=== PATIENT | female | born 1935 | race African-American/Black ===

== ENCOUNTER 2022-03-10 12:28 | Emergency (ER) | payer OTHER, MEDICAID ==
[~2022-03-10] VITALS: Ht 160 cm; Wt 73.5 kg
[~2022-03-10 12:28] MED LIST: DOCU-299 PO; METPCK PO; OMEP-278 PO; ROBDM PO
--- NOTE | 2022-03-10 12:28 | NUR ---
CARLOS ALS TO ER BED 10
[2022-03-10 12:40] VITALS: BP 109/58
[2022-03-10] MEDS ORDERED: NACL 0.9% 1,000 ML IV ONE (12:40)
--- NOTE | 2022-03-10 12:43 | NUR ---
Assumed care of pt from JOHN Deras.
--- NOTE | 2022-03-10 12:45 | NUR ---
PATIENT TAKEN TO CT VIA GURNEY, PATIENT ON PORTABLE DEMOLITION WORKER, PRIMARY RN ACCOMPANIED GYMNASTIC COACH.
--- NOTE | 2022-03-10 13:40 | NUR ---
Urine collected and walked to lab
[2022-03-10 14:14] LABS: APPEARANCE,URINE CLEAR (CLEAR); BILIRUBIN,URINE NEGATIVE (NEGATIVE); BLOOD, URINE 1+ (NEGATIVE); COLOR,URINE YELLOW (YELLOW); LEUKOCYTE ESTERASE ,URINE NEGATIVE (NEGATIVE); NITRITE, URINE NEGATIVE (NEGATIVE); UGLUCOSE 2+ (NEGATIVE)
[2022-03-10 14:35] LABS: ALBUMIN 2.7 g/dL (3.4-5.0); ANION GAP 14.2 (8-16); ASPARTATE AMINOTRANSFERASE 17 U/L (15-37); CARBON DIOXIDE 23.7 mmol/L (21-32); CHLORIDE 101 mmol/L (98-107); CREATININE 1.1 mg/dL (0.6-1.3); GLUCOSE 315 mg/dL (74-106); POTASSIUM 3.9 mmol/L (3.5-5.1); SODIUM SERUM 135 mmol/L (136-145); TOTAL BILIRUBIN 0.4 mg/dL (0.0-1.0); UREA NITROGEN, BLOOD 12 mg/dL (7-18)
[2022-03-10 14:54] LABS: OTHER CASTS, URINE None Seen /LPF (None Seen); WBC,URINE 0-5 /HPF (0-5)
--- NOTE | 2022-03-10 15:10 | NUR ---
Pt AOX4, bhupinder to make needs known. VSS. Pt family called for an update, ok with pt to give her children an update. All safety measures in place.
[2022-03-10 15:49] LABS: BASOPHILS % (AUTO) 0.6 % (0.0-2.0); EOSINOPHILS % (AUTO) 0.8 % (0.0-4.0); HEMOGLOBIN 11.7 g/dL (12.0-16.0); LYMPHOCYTES # (AUTO) 1.5 K/uL (2.5-16.5); LYMPHOCYTES % (AUTO) 38.4 % (20.5-51.1); MEAN CORPUSCULAR HEMOGLOBIN 32 pg (27-31); MEAN CORPUSCULAR HGB CONC 33 g/dL (33-37); MEAN CORPUSCULAR VOLUME 98.6 fL (80-94); MONOCYTES # (AUTO) 0.4 K/uL (0.8-1.0); MONOCYTES % (AUTO) 9.6 % (1.7-9.3); NEUTROPHILS # (AUTO) 1.9 K/uL (1.8-7.7); NEUTROPHILS % (AUTO) 50.6 % (42.2-75.2); PLATELET COUNT (AUTO) 129 K/uL (140-450); RED BLOOD CELL COUNT(AUTO) 3.65 MIL/uL (4.20-5.40); RED CELL DISTRIBUTION WIDTH 13.5 % (11.6-13.7); WHITE BLOOD COUNT (AUTO) 3.8 K/uL (4.8-10.8)
--- NOTE | 2022-03-10 17:24 | NUR ---
Patient appears to be resting comfortably in bed. Vital Signs within normal limits. Respirations even and unlabored.
--- NOTE | 2022-03-10 18:18 | NUR ---
Pt family contacted and they will be picking pt up in 5 minutes from our lobby.
[2022-03-10 18:40] VITALS: BP 121/70
--- NOTE | 2022-03-10 18:40 | NUR ---
Patient discharged with v/s stable. Written and verbal after care instructions given and explained with teachback. Patient alert, oriented and verbalized understanding of instructions. Ambulatory with steady gait. All questions addressed prior to discharge. ID band removed. Patient advised to follow up with PMD. Rx instructions given and explained. Patient educated on indication of medication including possible reaction and side effects. Opportunity to ask questions provided and answered.
--- NOTE | 2022-03-10 18:40 | NUR ---
Pt assisted to family vehicle with steady gait.
== END 2022-03-10 18:40 | disposition home or self-care (01) ==
LOC: MED 12:28
DX: R53.1 Weakness (principal); I95.9 Hypotension, unspecified; E86.0 Dehydration; E11.9 Type 2 diabetes mellitus without complications; Z79.84 Long term (current) use of oral hypoglycemic drugs; Z79.899 Other long term (current) drug therapy
CPT/HCPCS: 36415; 70450; 70496; 70498; 71045; 80053; 81001; 84484; 85025; 85610; 85730; 86886; 86900; 86901; 93005; 96360; 96361; 99285; J7030; Q0092; Q9967